=== PATIENT | female | born 1985 | race Caucasian/White ===

== ENCOUNTER 2016-08-20 03:26 | Inpatient (IN) | payer MEDICAID ==
[~2016-08-20] VITALS: Ht 157.5 cm; Wt 54.9 kg
--- NOTE | 2016-08-20 05:00 | NUR ---
MS RN NOTE: RECEIVED PATIENT FROM [facility]. RECEIVED REPORT FROM EMT. PATIENT IN NO ACUTE DISTRESS. BREATHING EVEN AND UNLABORED, NO SOB NOTED. IV TO LAC IN PLACE. ORIENTED PATIENT TO ROOM AND USE OF CALL LIGHT. BED LOCKED AND IN LOWEST POSITION, CALL LIGHT IN REACH. WILL CONTINUE TO MONITOR.
[2016-08-20 05:03] VITALS: BP 109/69
[2016-08-20] MEDS ORDERED: IV NS 0.9% 1,000 ML IV PRN (06:33)
--- NOTE | 2016-08-20 06:56 | NUR ---
MS RN NOTE: PATIENT RESTING IN BED, NO ACUTE DISTRESS NOTED. BREATHING EVEN AND UNLABORED, NO SOB. BED LOCKED AND IN LOWEST POSITION, CALL LIGHT IN REACH. ADMITTING ORDERS JUST ENTERED. WILL ENDORSE TO DAY NURSE TO CONTINUE WITH PLAN OF CARE.
[2016-08-20] MEDS ORDERED: ZOLPIDEM TARTRATE 5 MG TABLET PO PRN (07:00)
[2016-08-20] MEDS ORDERED: MORPHINE SULFATE INJ 2 MG/ML DISP.SYRIN IV PRN (07:00)
[2016-08-20] MEDS ORDERED: MAG HYDROX/AL HYDROX/SIMETH 30 ML UDC PO PRN (07:00)
[2016-08-20] MEDS ORDERED: Z GUARD REMEDY 2 OZ OINT TP PRN (07:00)
[2016-08-20] MEDS ORDERED: ACETAMINOPHEN 325 MG TABLET PO PRN (07:00)
[2016-08-20] MEDS ORDERED: HYDROCODONE/APAP 5/325MG 1 EACH TABLET PO PRN (07:00)
[2016-08-20] MEDS ORDERED: ONDANSETRON HCL/PF 4 MG/2 ML VIAL IVP PRN (07:00)
[2016-08-20] MEDS ORDERED: MAGNESIUM HYDROXIDE 30 ML UDC PO PRN (07:00)
--- NOTE | 2016-08-20 07:43 | NUR ---
MS RN OPENING NOTE PATIENT IS ASLEEP IN BED LOCKED IN LOWEST POSITION WITH SIDERAILS UP x2. NO COMPLAINTS OF PAIN AT THIS TIME. NO SOB OR DISTRESS . IV INTACT AND PATENT NO REDNESS OR SWELLING NOTED. CALL LIGHT WITHIN REACH. SAFETY MEASURES IMPLEMENTED. PATIENT IS CURRENTLY NPO. WILL CONTINUE TO MONITOR PATIENT
[2016-08-20 08:00] VITALS: BP 115/72
[2016-08-20] MEDS: PANTOPRAZOLE 40 MG VIAL IV SCH (08:30)
[2016-08-20 08:41] LABS: BASOPHILS % (AUTO) 0.3 % (0.0-2.0); EOSINOPHILS # (AUTO) 0.1 /CMM (0.0-0.7); EOSINOPHILS % (AUTO) 1.3 % (0.0-6.0); HEMATOCRIT 40 % (33-45); HEMOGLOBIN 13.6 g/dL (11.5-14.8); LYMPHOCYTES # (AUTO) 1.3 /CMM (0.8-4.8); LYMPHOCYTES % (AUTO) 22.2 % (20.0-44.0); MEAN CORPUSCULAR HEMOGLOBIN 32 PG (26.0-33.0); MEAN CORPUSCULAR HGB CONC 34 g/dl (31.0-36.0); MEAN CORPUSCULAR VOLUME 96 fL (82-100); MONOCYTES # (AUTO) 0.7 /CMM (0.1-1.30); MONOCYTES % (AUTO) 11.7 % (2.0-12.0); NEUTROPHILS # (AUTO) 3.7 /CMM (1.8-8.9); NEUTROPHILS % (AUTO) 64.5 % (43.0-81.0); PLATELET COUNT (AUTO) 216 /CMM (150-450); RDW COEFFICIENT OF VARIATION 12.6 (11.5-15.0); RED BLOOD CELL COUNT(AUTO) 4.19 MIL/uL (4.0-5.2); WHITE BLOOD COUNT (AUTO) 5.8 K/uL (4.3-11.0)
[2016-08-20] MEDS ORDERED: IV SET PRIMARY PUMP SET 1 EA INFUS.SET MC ONE (08:58)
[2016-08-20 09:06] LABS: ALBUMIN 3.4 g/dL (3.4-5.0); BILIRUBIN,TOTAL 1.2 mg/dL (0.2-1.0); CALCIUM, SERUM 8.7 mg/dL (8.5-10.1); CREATININE 0.7 mg/dL (0.6-1.3); MAGNESIUM 2.1 mg/dL (1.8-2.4); PHOSPHORUS 3.4 mg/dL (2.5-4.9); POTASSIUM 4.3 mmol/L (3.5-5.1); TOTAL PROTEIN, SERUM 7.3 g/dL (6.4-8.2)
[2016-08-20 09:09] LABS: THYROID STIMULATING HORMONE 0.857 uIU/mL (0.358-3.74)
--- NOTE | 2016-08-20 10:30 | NUR ---
MS RN NOTE MADE DR. JEAN AWARE OF GI CONSULT FOR PATIENT PER MD JOSE
[2016-08-20] MEDS ORDERED: SECONDARY IV SET 1 EA INFUS.SET MC ONE (12:53)
[2016-08-20] MEDS: PIPERACILLIN /TAZOBACTAM 4.5 G in IV D5W 50 ML IV SCH ×3 (12:59→23:40)
[2016-08-20 16:00] VITALS: BP 100/68
--- NOTE | 2016-08-20 18:19 | NUR ---
MS RN CLOSING NOTE PATIENT IS ALERT AND ORIENTED x4. NO PAIN AT THIS TIME. NO SOB OR DISTRESS NOTED. CALL LIGHT WITHIN REACH AT ALL TIMES. SAFETY MEASURES IMPLEMENTED. IV FLUIDS CONTINUED. PATIENT TO HAVE HIDA SCAN LATER THIS EVENING, CONSENT OBTAINED. ABLE TO COMMUNICATE ALL NEEDS. AWAITING GI CONSULT WITH DR. JEAN. WILL ENDORSE TO BOAT RIDE OPERATOR NURSE FOR SWATHI
--- NOTE | 2016-08-20 19:00 | NUR ---
MS SHERI INITIAL NOTES' RECEIVED REPORT FROM AM NURSE AND CHECKED PT , SHE'S AWAKE AND TALKING TO SOMEBODY ON HER CELLPHONE. DENIES ANY PAIN OR ANY DISCOMFORT AT THIS TIME. SHE ALSO AWARE OF HER H-DA SCAN TONIGHT AND WAITING FOR LEFTY /TECH TO PICK HER UP. KEPT HER COMFORTABLE AT ALL TIMES. WILL CONTINUE TO MONITOR. PLACE CALL LIGHT AT REACH.
[2016-08-20 20:00] VITALS: BP 110/65
--- NOTE | 2016-08-21 | NUR ---
LABORER CAR BARN/NOTES PT BACK AFTER SECOND TIME HI-DA SCAN. DENIES ANY PAIN OR ANY DISCOMFORT. CLEAR LIQUID GIVEN AT THIS TIME PER LEFTY/TECH ITS OK. NO ABDOMINAL PAIN OR N/V NOTED. KEPT HER WARM AND COMFORTABLE AT ALL TIMES. ZOSYN IVP BAG HUNG BY ANOTHER NURSE / WILL CONTINUE TO MONITOR.
[2016-08-21] MEDS: IV D5/0.45 NACL 1,000 ML IV PRN ×2 (05:10→23:49)
[2016-08-21] MEDS: PIPERACILLIN /TAZOBACTAM 4.5 G in IV D5W 50 ML IV SCH (05:18)
[2016-08-21] MEDS ORDERED: SECONDARY IV SET 1 EA INFUS.SET MC ONE (05:48)
[2016-08-21 07:17] LABS: BASOPHILS # (AUTO) 0.1 /CMM (0.0-0.2); BASOPHILS % (AUTO) 1.7 % (0.0-2.0); EOSINOPHILS # (AUTO) 0.2 /CMM (0.0-0.7); EOSINOPHILS % (AUTO) 3.8 % (0.0-6.0); HEMATOCRIT 40 % (33-45); HEMOGLOBIN 13.4 g/dL (11.5-14.8); LYMPHOCYTES # (AUTO) 1.8 /CMM (0.8-4.8); MEAN CORPUSCULAR HEMOGLOBIN 33 PG (26.0-33.0); MEAN CORPUSCULAR HGB CONC 34 g/dl (31.0-36.0); MEAN CORPUSCULAR VOLUME 97 fL (82-100); MONOCYTES # (AUTO) 0.6 /CMM (0.1-1.30); MONOCYTES % (AUTO) 11.6 % (2.0-12.0); NEUTROPHILS # (AUTO) 2.3 /CMM (1.8-8.9); NEUTROPHILS % (AUTO) 45.9 % (43.0-81.0); PLATELET COUNT (AUTO) 200 /CMM (150-450); RDW COEFFICIENT OF VARIATION 12.7 (11.5-15.0); RED BLOOD CELL COUNT(AUTO) 4.13 MIL/uL (4.0-5.2); WHITE BLOOD COUNT (AUTO) 4.9 K/uL (4.3-11.0)
--- NOTE | 2016-08-21 07:23 | NUR ---
CARRIER ASSOCIATE/CLOSING NOTES PT AWAKE AND ALERT WATCHING TV AT THIS TIME, STILL WITH IVF INFUSING AT THIS TIME. STABLE MEHNAZ THE NIGHT AND SLEPT WELL. KEPT HER WARM AND COMFORTABLE AT ALL TIMES. ENDORSE TO AM NURSE FOR CONTINUITY OF CARE.
--- NOTE | 2016-08-21 07:44 | NUR ---
MS RN OPENING NOTE PATIENT IS ASLEEP IN BED, EASILY AROUSABLE. NO PAIN AT THIS TIME. NO SOB OR DISTRESS NOTED. CALL LIGHT WITHIN REACH. IV INTACT AND PATENT NO REDNESS OR SWELLING NOTED. SAFETY MEASURES IMPLEMENTED. ABLE TO COMMUNICATE NEEDS. AWAITING GI CONSULT FROM DR. JEAN. WILL CONTINUE TO MONITOR
[2016-08-21 07:47] LABS: ALBUMIN 3.2 g/dL (3.4-5.0); BILIRUBIN,DIRECT 0.2 mg/dL (0.0-0.2); BILIRUBIN,TOTAL 0.8 mg/dL (0.2-1.0)
[2016-08-21 08:00] VITALS: BP 100/54
[2016-08-21] MEDS: PANTOPRAZOLE 40 MG VIAL IV SCH (08:15)
[2016-08-21] MEDS: PIPERACILLIN /TAZOBACTAM 3.375 G in IV D5W 50 ML IV SCH ×3 (11:21→23:42)
--- NOTE | 2016-08-21 12:26 | NUR ---
MS RN NOTE OBTAINED CONSENT FOR ERCP PROCEDURE. WILL ENDORSE TO COLLEGE INSTRUCTOR NURSE
[2016-08-21 16:00] VITALS: BP 93/56
--- NOTE | 2016-08-21 18:46 | NUR ---
MS RN CLOSING NOTE PATIENT IS AWAKE IN BED. NO PAIN AT THIS TIME. NO SOB OR DISTRESS NOTED. ALL DUE MEDICATION GIVEN ORDERED. INFORMED CONSENT OBTAINED FOR ERCP TOMORROW. NPO EXCEPT MEDICATIONS AFTER MIDNIGHT. CALL LIGHT WITHIN REACH AT ALL TIMES. NO SIGNIFICANT CHANGES. WILL ENDORSE TO CROTCH PIECE BASTER NURSE
[2016-08-21 20:00] VITALS: BP 109/68
--- NOTE | 2016-08-21 20:00 | NUR ---
MS SALES AGENT PROTECTIVE SERVICE INITIAL NOTES SEEN PT IN BED SITTING AWAKE AND ALERT TALKING TO HER FAMILY . DENIES ANY PAIN OR ANY DISCOMFORT. PT ALSO AWARE OF HER PROCEDURE TO ERCP , CONSENT SIGNED. STILL ON IVF D51/2 NS AT 125ML/HR INFUSING ON HER LEFT AC PATENT AND INTACT. KEPT HER WARM AND COMFORTABLE AT ALL TIMES. PLACE CALL LIGHT AT REACH. WILL CONTINUE TO MONITOR.
--- NOTE | 2016-08-22 | NUR ---
FOOT PIECE ASSEMBLER/NOTES PT SLEEPING COMFORTABLY IN BED WITHOUT ANY ACUTE DISTRESS NOTED. ZOSYN IVP BAG HUNG BY ANOTHER NURSE. WILL CONTINUE TO MONITOR.
[2016-08-22] MEDS: PIPERACILLIN /TAZOBACTAM 3.375 G in IV D5W 50 ML IV SCH ×3 (05:25→18:32)
--- NOTE | 2016-08-22 07:15 | NUR ---
MS VIDEO CONFERENCE SPECIALIST CLOSING NOTES PT BACK TO SLEEP AFTER USING THE RESTROOM, DENIES ANY PAIN OR ANY DISCOMFORT, IVF STILL INFUSING ON HER LEFT AC PATENT AND INTACT.ALL DUE MEDS GIVEN AND ALL NEEDS MET. STABLE MEHNAZ THE NIGHT AND SLEPT WELL.PT AWARE OF HER PROCEDURE TODAY AT 1PM. CHECKLIST DONE AND CONSENT SIGNED. WILL ENDORSE TO AM NURSE FOR CONTINUITY OF CARE. PLACE CALL LIGHT AT REACH.
[2016-08-22 08:00] VITALS: BP 103/59
--- NOTE | 2016-08-22 08:00 | NUR ---
MS FABIAN AM NOTES PT IS A/O X4 IN NO APPARENT DISTRESS, AMBULATORY WITH BRP. SKIN IS INTACT NPO FOR ERCP NS RUNNING AT 100 ML/HR IN LAC 22G
[2016-08-22] MEDS: PANTOPRAZOLE 40 MG VIAL IV SCH (08:44)
[2016-08-22 09:10] LABS: ALBUMIN 3.3 g/dL (3.4-5.0); BILIRUBIN,DIRECT 0.2 mg/dL (0.0-0.2); BILIRUBIN,TOTAL 0.8 mg/dL (0.2-1.0); TOTAL PROTEIN, SERUM 7.1 g/dL (6.4-8.2)
[2016-08-22 09:22] VITALS: BP 103/59
[2016-08-22 10:54] LABS: INR 0.95 (0.87-1.13); PROTHROMBIN TIME 9.9 SECS (9.5-12.7)
[2016-08-22] MEDS ORDERED: IOHEXOL 100 ML IV ONE (12:22)
[2016-08-22] MEDS ORDERED: FENTANYL PF 100MCG/2ML AMPUL ONE (14:07)
[2016-08-22] MEDS ORDERED: MIDAZOLAM HCL 2 MG/2ML VIAL ONE (14:07)
--- NOTE | 2016-08-22 15:50 | NUR ---
PT IS BACK FROM [facility] S/P ERCP PROCEDURE UNDER GENERAL ANESTHESIA.WITH STABLE V/S.BP 107/62 HR 66 RR 16 O2 SAT 99%
[2016-08-22] MEDS ORDERED: ANESTHESIA TRAY IN PYXIS 1 EA TRAY MC ONE (15:59)
[2016-08-22 16:00] VITALS: BP 107/62
--- NOTE | 2016-08-22 16:16 | NUR ---
Pt returned from ERCP in no apparent pain ordered a soft diet for dinner to be advanced as tolerated.
[2016-08-22 19:00] VITALS: BP 101/57
--- NOTE | 2016-08-22 19:40 | NUR ---
MS/RN NOTES RECEIVED PT. SITTING UP IN BED. AWAKE, ALERT AND ORIENTED X4. BREATHING EVEN AND UNLABORED ON ROOM AIR. NO SOB, RESPIRATORY DISTRESS OR COMPLAINTS OF PAIN NOTED AT THIS TIME. PT. WITH LEFT AC 20 GAUGE PERIPHERAL IV PRESENT, PATENT AND INTACT ADMINISTERING TO PT. D5 1/2 NS @ 125ML/HR. PT. WITH FAMILY MEMBERS PRESENT AT BEDSIDE. CALLED RADIOLOGY CURRENTLY AWAITING RESULTS FROM ERCP PROCEDURE AND FURTHER INSTRUCTIONS FOR DISCHARGE. BED IN LOWEST POSITION, CALL LIGHT WITHIN REACH, WILL CONTINUE TO MONITOR.
--- NOTE | 2016-08-22 19:45 | NUR ---
MS RN AM/CLOSING NOTES WAITING FOR RESULTS OF ERCP FOR FURTHER INSTRUCTIONS ABOUT DISCHARGE. PT IS IN NO APPARENT DISTRESS
[2016-08-22 20:00] VITALS: BP 101/57
[2016-08-22] MEDS: IV D5/0.45 NACL 1,000 ML IV PRN (22:22)
--- NOTE | 2016-08-22 23:00 | NUR ---
MS/RN NOTES PT. LYING IN BED RESTING. BREATHING EVEN AND UNLABORED ON ROOM AIR. NO SOB, RESPIRATORY DISTRESS OR COMPLAINTS OF PAIN NOTED AT THIS TIME. CURRENTLY AWAITING INTERPRETATION OF ERCP RESULTS FROM RADIOLOGY. WILL CONTINUE TO MONITOR.
[2016-08-23] MEDS: PIPERACILLIN /TAZOBACTAM 3.375 G in IV D5W 50 ML IV SCH ×3 (00:47→12:00)
[2016-08-23] MEDS ORDERED: IV D5/0.45 NACL 1,000 ML IV ONE (05:49)
[2016-08-23] MEDS: IV D5/0.45 NACL 1,000 ML IV PRN (05:55)
--- NOTE | 2016-08-23 06:15 | NUR ---
MS/RN NOTES PT. LYING IN BED RESTING. BREATHING EVEN AND UNLABORED ON ROOM AIR. NO SOB, RESPIRATORY DISTRESS OR COMPLAINTS OF PAIN NOTED AT THIS TIME. PT. WITH LEFT AC 20 GAUGE PERIPHERAL IV PRESENT, PATENT AND INTACT ADMINISTERING TO PT. D5 1/2 NS @ 125ML/HR. ALL PT. NEEDS MET. BED IN LOWEST POSITION, CALL LIGHT WITHIN REACH, WILL ENDORSE TO DAYSHIFT NURSE FOR CONTINUITY OF CARE.
--- NOTE | 2016-08-23 07:56 | NUR ---
RN AM NOTES RECEIVED PATIENT AWAKE IN BED, ALERT AND ORIENTED X 4. NO S/S OF DISTRESS, SOB OR HEADACHE. NO NAUSEA/VOMITING, NO CRAMPING. WILL CONTINUE TO MONITOR.
[2016-08-23 08:00] VITALS: BP 86/40
[2016-08-23] MEDS: PANTOPRAZOLE 40 MG VIAL IV SCH (09:30)
--- NOTE | 2016-08-23 10:27 | NUR ---
SPOKE TO HOSPITALIST AND GI DOCTORS TO RECONFIRM PATIENT DISCHARGE. DOCTORS OKAY WITH PATIENT FOLLOWING UP OUTPATIENT TO FIND SURGEON VIA HER PERSONAL INSURANCE. PATIENT IS STABLE, ALERT AND ORIENTED X4. ARRANGING DISCHARGE PAPERWORK AND EXIT CARE WITH PATIENT.
--- NOTE | 2016-08-23 12:00 | NUR ---
PATIENT REFUSED MEDICATION BECAUSE SHE IS GOING TO DISCHARGE. EXPLAINED ADVANTAGES AND DISADVANTAGES OF NOT TAKING ANTIBIOTIC, PATIENT STILL REFUSED. WILL CONTINUE TO MONITOR THROUGH DISCHARGE.
--- NOTE | 2016-08-23 13:50 | NUR ---
VIDEO GAMES MECHANIC NOTES PATIENT LEFT HOSPITAL IN STABLE CONDITION ACCOMPANIED BY FRIEND AND FAMILY MEMBER. DISCHARGE PACKET GIVEN TO PATIENT AND EXIT CARE DONE, WITH NOTE FOR WORK INCLUDED. PATIENT ALREADY TRIED TO CALL TO MAKE APPOINTMENT WITH DOCTOR AND SURGEON THROUGH HER INSURANCE, BUT THEY WERE CLOSED FOR THE WEEKEND. SHE STATED "I WILL CALL AGAIN ON THURSDAY." PATIENT IS AMBULATORY, NO COMPLAINTS OR PAIN, DISTRESS OR SHORTNESS OF BREATH AND LEFT HOSPITAL SAFELY IN PRIVATE CAR, ESCORTED OUT BY HOSPITAL STAFF.
== END 2016-08-23 14:00 | disposition home or self-care (01) ==
LOC: MEDSG1 04:40 → MED 04:45
PROVIDERS: ADMIT Contractor; ATTEND Internal Medicine
PROC: 0F798ZZ Dilation of Common Bile Duct, Via Natural or Artificial Opening Endoscopic (ICD-10-PCS; principal; 2016-08-22 13:55)
DX: K80.70 Calculus of gallbladder and bile duct without cholecystitis without obstruction (principal); K83.0 Cholangitis; Z98.890 Other specified postprocedural states; Z90.49 Acquired absence of other specified parts of digestive tract
CPT/HCPCS: 36415; 74000-TC; 78226; 80053-TC; 80061-TC; 80076-TC; 83735-TC; 84100-TC; 84443-TC; 84703-TC; 85025-TC; 85610-TC; 85730-TC; 87081-TC; A9537; C9113; J2250; J2270; J2543; J3010; J3490; J7060; Q9967; Z7610